=== PATIENT | male | born 1965 | race Hispanic/Latino ===

== ENCOUNTER 2021-04-11 23:13 | Emergency (ER) | payer SELFPAY ==
[2021-04-11] MEDS ORDERED: Haldol 5 MG IM ONE (23:23)
[2021-04-11] MEDS ORDERED: Ativan 2 MG/1 ML VIAL IM ONE (23:24)
[2021-04-11] MEDS ORDERED: Ativan 2 MG/1 ML VIAL ONE (23:28)
[2021-04-11] MEDS ORDERED: Haldol 5 MG ONE (23:28)
[2021-04-11 23:44] LABS: Absolute Neutrophil Ct (ANC) 2.99 (1.4-6.9); Basophil (Absolute #) 0.02 (0-0.4); Eosinophil % 0.4 % (0.00-5.0); Eosinophil (Absolute #) 0.03 (0-0.5); Hematocrit 43.2 % (42-50); Hemoglobin 14.9 gm/dl (12.5-18.0); Lymphocyte (Absolute #) 3.27 (1.0-4.6); Lymphocytes % 45.8 % (24.0-44.0); Mean Cell Volume 90.8 fl (78-100); Mean Corpuscular Hemoglobin 31.3 pg (26-32); Mean Corpuscular Hgb Concent. 34.5 g/dl (32-36); Mean Platelet Volume 11.1 fl (7.5-11.0); Monocyte (Absolute #) 0.83 (0.0-1.3); Monocytes % 11.6 % (0.0-12.0); Neutrophil % 41.9 % (36.0-66.0); Platelet Count 184 K/mm3 (150-450); Red Blood Count 4.76 M/mm3 (4.1-5.6); Red Cell Distribution Width 14.2 % (11.5-14.0); White Blood Count 7.1 K/mm3 (4.0-10.5)
[2021-04-12] LABS: ACETAMINOPHEN < 10 ug/ml (10-30); ALBUMIN 4.8 g/dL (3.5-5.0); ALKALINE PHOSPHATASE 95 U/L (38-126); BLOOD UREA NITROGEN 12 mg/dL (9-20); CHLORIDE 107 mmol/L (98-107); Calcium 9.2 mg/dL (8.4-10.2); Carbon Dioxide 22 mmol/L (22-30); Creatinine 1 1.09 mg/dL (0.66-1.25); EST GLOMERULAR FILTRATION RATE > 60.0 ML/MIN; ETHYL ALCOHOL 285 mg/dL (0-10); Glucose 91 mg/dL (74-106); Potassium 3.5 mmol/L (3.5-5.1); SALICYLATE < 1.0 mg/dL (2-20); SGOT/AST 26 U/L (17-59); SGPT/ALT 16 U/L (0-50); SODIUM 147 mmol/L (137-145)
--- NOTE | 2021-04-12 00:16 | ERPHSYRPT ---
- History of Present Illness Time Seen by Provider: 04/11/21 23:30 Source: patient Exam Limitations: no limitations Patient Subjective Stated Complaint: SCAT reports they were called to the scene where the patient was located laying in the lawn on the side of the road. Pat ient originally slow to respond but then became alert and aggressive towards medical personal; spitting and kicking. Blood sugar 68. Possible intoxication. Triage Nursing Assessment: Patient arrived by ambulance. He is awake/alert but incoherent at times. Patient does admit to drinking [employer] alcohol tonight. Patient stripping off clothing and gown. Patient speaks some australian but mainly speeks sinhala. ER MD able to communicate with patient without difficulties. Parker brambila uncooperative with staff; refusing to keep pulse oximeter on and pulling at stethoscope when attempting to assess him. Patient has not spit at ED staff but is cursing at staff. He allowed staff to wipe spit from face without difficulties. No SOB noted. Patient's pants wet with urine upon arrival to ED. Physician History: Patient is a 55-year-old male presents to our ED via EMS for evaluation status post found lying in a lawn on the side of the road. Per EMS patient was slow to respond but then became alert and aggressive towards medical staff. Patient was spitting and kicking. Upon arrival to our ED patient was belligerent. He smelled of alcohol. Patient was aggressive towards staff in our ED. Patient calm down somewhat then admitted to drinking alcohol. Patient noncooperative. Patient threat to staff. HPI limited. Dr. Baer speaks Sami. Patient appeared intoxicated. Patient verbally aggressive for Dr. Baer. For patient and staff states the patient was sedated. Timing/Duration: today Severity: moderate Modifying Factors: Improves With: nothing Associated Symptoms: denies symptoms Allergies/Adverse Reactions: UNOBTAINABLE Allergy (Unverified 04/11/21 23:51) Home Medications: No Reportable Medications [No Reported Medications] 04/11/21 [History] Travel Risk - International Travel Have you traveled outside of the country in past 3 weeks: No If Yes, where;: UNKNOWN - Coronavirus Screening Are you exhibiting any of the following symptoms?: No - Vaccine Status Have you recieved a Covid-19 vaccination: No (unknown) - Vaccination Dates Comment: UNABLE TO ANSWER AT THIS TIME DUE TO PATIENT REFUSAL TO COOPERATE WITH STAFF - Review of Systems Constitutional: No Symptoms, No Fever, No Chills Eyes: No Symptoms Ears, Nose, & Throat: No Symptoms Respiratory: No Symptoms, No Cough, No Dyspnea Cardiac: No Symptoms, No Chest Pain, No Edema, No Syncope Abdominal/Gastrointestinal: No Symptoms, No Abdominal Pain, No Nausea, No Vomiting, No Diarrhea Genitourinary Symptoms: No Symptoms, No Dysuria Musculoskeletal: No Symptoms, No Back Pain, No Neck Pain Skin: No Symptoms, No Rash Neurological: No Symptoms, No Dizziness, No Focal Weakness, No Sensory Changes Psychological: No Symptoms Endocrine: No Symptoms Hematologic/Lymphatic: No Symptoms Immunological/Allergic: No Symptoms All Other Systems: Reviewed and Negative - Past Medical History Pertinent Past Medical History: No Other Medical History: UNKNOWN DUE TO PATIENT WILL NOT COOPERATE WITH STAFF AND ANSWER STAFF QUESTIONS - Past Surgical History Past Surgical History: No Other Surgical History: UNKNOWN DUE TO PATIENT WILL NOT COOPERATE WITH STAFF AND ANSWER STAFF QUESTIONS - Social History Smoking Status: Unknown if ever smoked - Nursing Vital Signs Nursing Vital Signs: Initial Vital Signs Temperature 96.9 F 04/11/21 23:23 Pulse Rate 89 04/11/21 23:23 Respiratory Rate 24 04/11/21 23:23 Blood Pressure 149/99 04/11/21 23:23 Pain Scale Pain Intensity 0 - Physical Exam General Appearance: no apparent distress, alert, other (Patient smells of alcohol and is behaving belligerent.) Eye Exam: PERRL/EOMI, eyes nml inspection Ears, Nose, Throat Exam: normal ENT inspection, TMs normal, pharynx normal, moist mucous membranes Neck Exam: normal inspection, non-tender, supple, full range of motion Respiratory Exam: normal breath sounds, lungs clear, airway intact, No respiratory distress Cardiovascular Exam: regular rate/rhythm, normal heart sounds, normal peripheral pulses Gastrointestinal/Abdomen Exam: soft, normal bowel sounds, No tenderness, No mass Back Exam: normal inspection, normal range of motion, No CVA tenderness, No vertebral tenderness Extremity Exam: normal inspection, normal range of motion, pelvis stable Neurologic Exam: alert, oriented x 3, cooperative, normal mood/affect, nml cerebellar function, nml station & gait, sensation nml, No motor deficits Skin Exam: normal color, warm, dry, No rash Lymphatic Exam: No adenopathy SpO2 Interpretation: normal SpO2: 98 O2 Delivery: Room Air - Course Nursing assessment & vital signs reviewed: Yes EKG Interpreted by Me: RATE (74), Sinus Rhythm, NORMAL AXIS, NORMAL INTERVALS - CT Exams Head CT Interpretation: Tele-radiologist Report (No acute intracranial abnormality.) Cervical Spine CT Interpretation: Tele-radiologist Report (No acute fractures. Several 3 to 4 mm pulmonary nodules in the right upper lobe and right apex.) Ordered Tests: Active Orders 24 hr Category Date Time Status CERVICAL SPINE WO CONTRAST [CT] Routine Exams 04/12/21 00:26 Taken HEAD WITHOUT CONTRAST [CT] Stat Exams 04/12/21 00:52 Taken ACETAMINOPHEN Stat Lab 04/11/21 23:40 Completed CBC W DIFF Stat Lab 04/11/21 23:40 Completed CMP Stat Lab 04/11/21 23:40 Completed ETHYL ALCOHOL Stat Lab 04/11/21 23:40 Completed ETHYL ALCOHOL Urgent Lab 04/12/21 02:47 Completed SALICYLATE Stat Lab 04/11/21 23:40 Completed TROPONIN Q3H Lab 04/11/21 23:40 Completed TROPONIN Q3H Lab 04/12/21 02:47 Completed UA W/RFX UR CULTURE Stat Lab 04/11/21 23:57 Completed Urine Triage Profile Stat Lab 04/11/21 23:57 Completed Medication Summary Generic Name Dose Route Start Last Admin Trade Name Freq PRN Reason Stop Dose Admin Sodium Chloride 1,000 mls @ 100 mls/hr 04/12/21 02:45 04/12/21 02:43 Sodium Chloride 0.9% 1000 Ml IV 05/12/21 02:44 100 mls/hr .Q10H AZIZA Administration Discontinued Medications Generic Name Dose Route Start Last Admin Trade Name Freq PRN Reason Stop Dose Admin Haloperidol Lactate 5 mg 04/11/21 23:23 04/11/21 23:34 Haloperidol Lactate 5 Mg/Ml Vial IM 04/11/21 23:24 5 mg STAT ONE Administration Haloperidol Lactate Confirm 04/11/21 23:28 Haloperidol Lactate 5 Mg/Ml Vial Administered 04/11/21 23:29 Dose 5 mg .ROUTE .STK-MED ONE Lorazepam 2 mg 04/11/21 23:24 04/11/21 23:33 Lorazepam 2 Mg/1 Ml 2 Mg Vial IM 04/11/21 23:25 2 mg STAT ONE Administration Lorazepam Confirm 04/11/21 23:28 Lorazepam 2 Mg/1 Ml 2 Mg Vial Administered 04/11/21 23:29 Dose 2 mg .ROUTE .STK-MED ONE Lab/Rad Data: Laboratory Result Diagrams 04/11/21 23:40 04/11/21 23:40 Laboratory Results 04/12/21 04/11/21 04/11/21 Range/Units 02:47 23:57 23:57 WBC (4.0-10.5) K/mm3 RBC (4.1-5.6) M/mm3 Hgb (12.5-18.0) gm/dl Hct (42-50) % MCV (78-100) fl MCH (26-32) pg MCHC (32-36) g/dl RDW (11.5-14.0) % Plt Count (150-450) K/mm3 MPV (7.5-11.0) fl Gran % (36.0-66.0) % Eos # (Auto) (0-0.5) Absolute Lymphs (auto) (1.0-4.6) Absolute Monos (auto) (0.0-1.3) Lymphocytes % (24.0-44.0) % Monocytes % (0.0-12.0) % Eosinophils % (0.00-5.0) % Basophils % (0.0-0.4) % Absolute Granulocytes (1.4-6.9) Basophils # (0-0.4) Sodium (137-145) mmol/L Potassium (3.5-5.1) mmol/L Chloride (98-107) mmol/L Carbon Dioxide (22-30) mmol/L Anion Gap (5-15) MEQ/L BUN (9-20) mg/dL Creatinine (0.66-1.25) mg/dL Estimated GFR ML/MIN Glucose (74-106) mg/dL Calcium (8.4-10.2) mg/dL Total Bilirubin (0.2-1.3) mg/dL AST (17-59) U/L ALT (0-50) U/L Alkaline Phosphatase (38-126) U/L Troponin I < 0.012 (0.000-0.034) ng/mL Serum Total Protein (6.3-8.2) g/dL Albumin (3.5-5.0) g/dL Urine Color COLORLESS (YELLOW) Urine Appearance CLEAR (CLEAR) Urine pH 5.0 (5-6) Ur Specific [place] 1.004 (1.005-1.025) Urine Protein NEGATIVE (Negative) Urine Ketones NEGATIVE (NEGATIVE) Urine Blood NEGATIVE (0-5) See/ul Urine Nitrite NEGATIVE (NEGATIVE) Urine Bilirubin NEGATIVE (NEGATIVE) Urine Urobilinogen NEGATIVE (0-1) mg/dL Ur Leukocyte Esterase NEGATIVE (NEGATIVE) Urine WBC (Auto) NONE (0-5) /HPF Urine RBC (Auto) NONE (0-2) /HPF U Epithel Cells (Auto) NONE (FEW) /HPF Urine Bacteria (Auto) NONE (NEGATIVE) /HPF Urine Mucus (Auto) SLIGHT (NEGATIVE) /HPF Urine Culture Reflexed NO (NO) Urine Glucose NEGATIVE (NEGATIVE) mg/dL Salicylates (2-20) mg/dL Urine Opiates Level NEGATIVE (NEGATIVE) Ur Methadone NEGATIVE (NEGATIVE) Acetaminophen (10-30) ug/ml Urine Barbiturates NEGATIVE (NEGATIVE) Ur Phencyclidine (PCP) NEGATIVE (NEGATIVE) Urine Amphetamine NEGATIVE (NEGATIVE) U Benzodiazepine Level NEGATIVE (NEGATIVE) Urine Cocaine NEGATIVE (NEGATIVE) Urine Marijuana (THC) NEGATIVE (NEGATIVE) Ethyl Alcohol 254 H (0-10) mg/dL 04/11/21 04/11/21 04/11/21 Range/Units 23:40 23:40 23:40 WBC 7.1 (4.0-10.5) K/mm3 RBC 4.76 (4.1-5.6) M/mm3 Hgb 14.9 (12.5-18.0) gm/dl Hct 43.2 (42-50) % MCV 90.8 (78-100) fl MCH 31.3 (26-32) pg MCHC 34.5 (32-36) g/dl RDW 14.2 H (11.5-14.0) % Plt Count 184 (150-450) K/mm3 MPV 11.1 H (7.5-11.0) fl Gran % 41.9 (36.0-66.0) % Eos # (Auto) 0.03 (0-0.5) Absolute Lymphs (auto) 3.27 (1.0-4.6) Absolute Monos (auto) 0.83 (0.0-1.3) Lymphocytes % 45.8 H (24.0-44.0) % Monocytes % 11.6 (0.0-12.0) % Eosinophils % 0.4 (0.00-5.0) % Basophils % 0.3 (0.0-0.4) % Absolute Granulocytes 2.99 (1.4-6.9) Basophils # 0.02 (0-0.4) Sodium 147 H (137-145) mmol/L Potassium 3.5 (3.5-5.1) mmol/L Chloride 107 (98-107) mmol/L Carbon Dioxide 22 (22-30) mmol/L Anion Gap 21.0 H (5-15) MEQ/L BUN 12 (9-20) mg/dL Creatinine 1.09 (0.66-1.25) mg/dL Estimated GFR > 60.0 ML/MIN Glucose 91 (74-106) mg/dL Calcium 9.2 (8.4-10.2) mg/dL Total Bilirubin 0.70 (0.2-1.3) mg/dL AST 26 (17-59) U/L ALT 16 (0-50) U/L Alkaline Phosphatase 95 (38-126) U/L Troponin I < 0.012 (0.000-0.034) ng/mL Serum Total Protein 8.0 (6.3-8.2) g/dL Albumin 4.8 (3.5-5.0) g/dL Urine Color (YELLOW) Urine Appearance (CLEAR) Urine pH (5-6) Ur Specific [place] (1.005-1.025) Urine Protein (Negative) Urine Ketones (NEGATIVE) Urine Blood (0-5) See/ul Urine Nitrite (NEGATIVE) Urine Bilirubin (NEGATIVE) Urine Urobilinogen (0-1) mg/dL Ur Leukocyte Esterase (NEGATIVE) Urine WBC (Auto) (0-5) /HPF Urine RBC (Auto) (0-2) /HPF U Epithel Cells (Auto) (FEW) /HPF Urine Bacteria (Auto) (NEGATIVE) /HPF Urine Mucus (Auto) (NEGATIVE) /HPF Urine Culture Reflexed (NO) Urine Glucose (NEGATIVE) mg/dL Salicylates < 1.0 L (2-20) mg/dL Urine Opiates Level (NEGATIVE) Ur Methadone (NEGATIVE) Acetaminophen < 10 L (10-30) ug/ml Urine Barbiturates (NEGATIVE) Ur Phencyclidine (PCP) (NEGATIVE) Urine Amphetamine (NEGATIVE) U Benzodiazepine Level (NEGATIVE) Urine Cocaine (NEGATIVE) Urine Marijuana (THC) (NEGATIVE) Ethyl Alcohol 285 H (0-10) mg/dL - Progress Progress: improved Progress Note: We awoke patient at approximately 6 AM. Patient ambulated in our ED. Patient did not complain of pain. Patient was alert and oriented x4. Patient states he would not have a ride home until 9 AM. Patient states that he will call his friend Raymond to pick him up for a ride. Patient states he currently lives in [place]. Patient states he feels well. Patient states is ready for discharge. We will let patient rest until 9 AM. We will call patient's friend Raymond to come pick him up at 9 AM. Patient has been sleeping comfortably throughout the night. Vitals have been stable throughout the night. 04/12/21 06:14 Patient will be endorsed to Dr. Evans at 7 AM (change of shift) for final disposition. 04/12/21 06:39 Counseled pt/family regarding: lab results, diagnosis, rad results - Departure Departure Disposition: Home Clinical Impression: Pulmonary nodules, Alcohol intoxication, Aggressive behavior Condition: Stable Critical Care Time: No Referrals: DOCTOR,NO FAMILY [Primary Care Provider] - Follow up/PCP as directed SAVANA VAZQUEZ MD [ACTIVE STAFF] - Follow up/PCP as directed
[2021-04-12 00:36] LABS: Amphetamine,Urine NEGATIVE (NEGATIVE); Barbiturate,Urine NEGATIVE (NEGATIVE); Benzodiazepine,Urine NEGATIVE (NEGATIVE); Cocaine,Urine NEGATIVE (NEGATIVE); Methadone,Urine NEGATIVE (NEGATIVE); Opiate,Urine NEGATIVE (NEGATIVE); PCP,Urine NEGATIVE (NEGATIVE); THC,Urine NEGATIVE (NEGATIVE)
[2021-04-12 00:38] LABS: Appearance CLEAR (CLEAR); Bilirubin NEGATIVE (NEGATIVE); Blood NEGATIVE Ery/ul (0-5); Glucose NEGATIVE (NEGATIVE); Ketones NEGATIVE (NEGATIVE); Leukocyte Esterase NEGATIVE (NEGATIVE); Mucus SLIGHT /HPF (NEGATIVE); Nitrite NEGATIVE (NEGATIVE); Protein,Urine Dip NEGATIVE (Negative); Specific Gravity 1.004 (1.005-1.025); Urobilinogen NEGATIVE mg/dL (0-1)
[2021-04-12] MEDS ORDERED: Sodium Chloride 0.9% 1000 ML 1,000 ML IV SCH (02:45)
[2021-04-12 03:13] LABS: ETHYL ALCOHOL 254 mg/dL (0-10)
[2021-04-12 03:53] LABS: TROPONIN < 0.012 ng/mL (0.000-0.034)
[2021-04-12 06:17] VITALS: O2SAT 98
[2021-04-12 08:12] VITALS: BP 98/62; PULSE 68
--- NOTE | 2021-04-12 08:58 | XRAY ---
Indication: Patient found on road unresponsive. Acute mental status change. Alcohol intoxication. Aggression. Multiple contiguous axial images obtained through the head without contrast. Comparison: None Normal appearing brain parenchyma, ventricles, and bony calvarium for patient's age. Visualized paranasal sinuses and mastoid air cells are clear. Impression: Normal CT head without contrast exam.. Comment: Preliminary interpretation made by [facility]. No critical discrepancy.
--- NOTE | 2021-04-12 09:00 | XRAY ---
Indication: Patient found on road unresponsive. Acute mental status change. Alcohol intoxication. Aggression. Multiple contiguous axial images obtained through the cervical spine. Sagittal and coronal reformatted images obtained. Comparison: None Axial images negative for acute fracture, suspicious bony lesions, or spinal canal stenosis. Minimal multilevel endplate spurring and minimal multilevel bilateral degenerative facet arthropathy. Sagittal and coronal reformatted images demonstrates normal alignment. Vertebral body heights/disc spaces maintained. No acute compression fracture, sublocation, or jumped facet. Normal appearing craniocervical junction. Visualized noncontrasted soft tissues are unremarkable. Lung apices demonstrates at least 3-4 sub5 mm indeterminant noncalcified nodules. Impression: 1. Negative acute fracture/subluxation. 2. Minimal multilevel degenerative changes. 3. Indeterminant right apical noncalcified micronodules. Outside comparison studies recommended. If not, CT chest recommended to establish baseline with follow-up per Fleischner guidelines. Comment: Preliminary interpretation made by [facility]. No critical discrepancy.
== END 2021-04-12 09:15 | disposition home or self-care (01) ==
LOC: ED 23:13
DX: F10.129 Alcohol abuse with intoxication, unspecified (principal); Y90.8 Blood alcohol level of 240 mg/100 ml or more; R91.8 Other nonspecific abnormal finding of lung field; Z72.811 Adult antisocial behavior
CPT/HCPCS: 36000; 36415; 51702; 70450; 72125; 80053; 80307; 81001; 84484; 85025; 93005; 96372; 99285; J1630; J2060; G0480